=== PATIENT | male | born 1980 | race Caucasian/White ===

== ENCOUNTER 2021-01-17 17:29 | Emergency (ER) | payer OTHER ==
--- NOTE | 2021-01-17 18:14 | EDM.PDOC ---
ED HPI GENERAL MEDICAL PROBLEM - General Chief Complaint: Abdominal Pain Stated Complaint: ABD PAIN , HAS ABD HERNIA Time Seen by Provider: 01/17/21 18:14 Source of Information: Reports: Patient, RN Notes Reviewed History Limitations: Reports: No Limitations - History of Present Illness INITIAL COMMENTS - FREE TEXT/NARRATIVE: Rivera presents today for complaints of left shoulder pain and epigastric/abdominal pain for 1 to 2 days with intermittent nausea. He reports history of left shoulder pain at times due to repetitive movement at work. He reports history of ventral hernia. He denies chest pain, chest pressure, SOB, difficulty breathing, palpitations, fever, chills, vomiting, change in bowel/bladder or other concerns. - Related Data Allergies Allergy/AdvReac Type Severity Reaction Status Date / Time No Known Allergies Allergy Verified 01/17/21 18:05 Home Meds: Home Meds dilTIAZem HCL [Cardizem LA] 1 tab PO DAILY 01/17/21 [History] Past Medical History Musculoskeletal History: Reports: Back Pain, Chronic - Past Surgical History GI Surgical History: Reports: Hernia, Abdominal ED ROS GENERAL - Review of Systems Review Of Systems: See Below Constitutional: Reports: No Symptoms HEENT: Reports: No Symptoms Respiratory: Reports: No Symptoms Cardiovascular: Reports: No Symptoms Endocrine: Reports: No Symptoms GI/Abdominal: Reports: Abdominal Pain, Nausea. Denies: Anorexia, Black Stool, Bloody Stool, Constipation, Diarrhea, Decreased Appetite, Difficulty Swallowing, Distension, Flatus, Hematochezia, Melena, Vomiting : Reports: No Symptoms Musculoskeletal: Reports: Shoulder Pain (Bilateral shoulder pain, left worse then right. Pain increases with repetitive motion. ) Skin: Reports: No Symptoms Neurological: Reports: No Symptoms Psychiatric: Reports: No Symptoms Hematologic/Lymphatic: Reports: No Symptoms Immunologic: Reports: No Symptoms ED EXAM, GI/ABD - Physical Exam Exam: See Below Exam Limited By: No Limitations General Appearance: Alert, WD/WN, No Apparent Distress Eyes: Bilateral: Normal Appearance, EOMI Ears: Normal External Exam, Normal Canal, Hearing Grossly Normal, Normal TMs Throat/Mouth: Normal Inspection, Normal Lips, Normal Gums, Normal Oropharynx, Normal Voice, No Airway Compromise Head: Atraumatic, Normocephalic Neck: Normal Inspection, Supple, Non-Tender, Full Range of Motion. No: Lymphadenopathy (R), Lymphadenopathy (L) Respiratory/Chest: No Respiratory Distress, Lungs Clear, Normal Breath Sounds, No Accessory Muscle Use, Chest Non-Tender. No: Crackles, Rales, Rhonchi, Wheezing Cardiovascular: Normal Peripheral Pulses, Regular Rate, Rhythm, No Edema, No Gallop, No Murmur, No Rub GI/Abdominal Exam: Normal Bowel Sounds, Soft, No Organomegaly, No Distention, No Abnormal Bruit, No Mass, Hernia (small ventral hernia, reducable). No: Guarding, Rigid, Rebound, Tender, Mass Back Exam: Normal Inspection, Full Range of Motion. No: CVA Tenderness (R), CVA Tenderness (L), Muscle Spasm, Paraspinal Tenderness, Vertebral Tenderness Extremities: Normal Inspection, Normal Range of Motion, Non-Tender, No Pedal Edema, Normal Capillary Refill, Other (normal ROM bilateral arms/shoulders, no muscle atrophy.) Neurological: Alert, Oriented, Normal Cognition, Normal Gait, Normal Reflexes, No Motor/Sensory Deficits Psychiatric: Normal Affect, Normal Mood Skin Exam: Warm, Dry, Intact, Normal Color, No Rash. No: Cyanosis, Ecchymosis, Erythema, Increased Warmth, Pallor, Wound/Incision Lymphatic: No Adenopathy #1 Interpretation EKG Date: 01/17/21 Time: 19:00 Rhythm: NSR Rate (Beats/Min): 86 Hoffmeister: Normal P-Wave: Present QRS: Normal ST-T: Normal QT: Normal Comparison: NA - No Prior EKG Course - Vital Signs Last Recorded V/S: Last Vital Signs Temp 36.6 C 01/17/21 18: Pulse 75 01/17/21 19:08 Resp 16 01/17/21 18:21 BP 196/96 H 01/17/21 19:08 Pulse Ox 96 01/17/21 18:21 - Orders/Labs/Meds Orders: Active Orders 24 hr Category Date Time Status Abdomen 2V AP Flat Upright [CR] Stat Exams 01/17/21 18:47 Taken Chest 2V [CR] Stat Exams 01/17/21 18:47 Taken Saline Lock Insert [OM.PC] Routine Oth 01/17/21 18:50 Ordered EKG 12 Lead [EK] Routine Ther 01/17/21 18:47 Ordered Labs: Laboratory Tests 01/17/21 01/17/21 01/17/21 Range/Units 19:02 19:02 19:02 WBC 7.8 (4.5-11.0) K/uL RBC 5.33 (4.30-5.90) M/uL Hgb 16.2 H (12.0-15.0) g/dL Hct 46.0 (40.0-54.0) % MCV 86 (80-98) fL MCH 30 (27-31) pg MCHC 35 (32-36) % Plt Count 160 (150-400) K/uL Neut % (Auto) 63.1 (36-66) % Lymph % (Auto) 29.0 (24-44) % [place] % (Auto) 6.9 H (2-6) % Eos % (Auto) 0.6 L (2-4) % Baso % (Auto) 0.4 (0-1) % Sodium 142 (140-148) mmol/L Potassium 3.3 L (3.6-5.2) mmol/L Chloride 104 (100-108) mmol/L Carbon Dioxide 30 (21-32) mmol/L Anion Gap 11.3 (5.0-14.0) mmol/L BUN 13 (7-18) mg/dL Creatinine 1.1 (0.8-1.3) mg/dL Est Cr Clr Drug Dosing 100.88 mL/min Estimated GFR (MDRD) > 60 (>60) Glucose 94 (74-106) mg/dL Calcium 8.6 (8.5-10.1) mg/dL Total Bilirubin 0.8 (0.2-1.0) mg/dL AST 25 (15-37) U/L ALT 43 (12-78) U/L Alkaline Phosphatase 71 (46-116) U/L Troponin I (0.000-0.056) ng/mL Total Protein 7.4 (6.4-8.2) g/dL Albumin 3.9 (3.4-5.0) g/dL Globulin 3.5 (2.3-3.5) g/dL Albumin/Globulin Ratio 1.1 L (1.2-2.2) Amylase 35 (25-115) U/L Lipase 51 L (73-393) U/L 01/17/21 Range/Units 19:26 WBC (4.5-11.0) K/uL RBC (4.30-5.90) M/uL Hgb (12.0-15.0) g/dL Hct (40.0-54.0) % MCV (80-98) fL MCH (27-31) pg MCHC (32-36) % Plt Count (150-400) K/uL Neut % (Auto) (36-66) % Lymph % (Auto) (24-44) % [place] % (Auto) (2-6) % Eos % (Auto) (2-4) % Baso % (Auto) (0-1) % Sodium (140-148) mmol/L Potassium (3.6-5.2) mmol/L Chloride (100-108) mmol/L Carbon Dioxide (21-32) mmol/L Anion Gap (5.0-14.0) mmol/L BUN (7-18) mg/dL Creatinine (0.8-1.3) mg/dL Est Cr Clr Drug Dosing mL/min Estimated GFR (MDRD) (>60) Glucose (74-106) mg/dL Calcium (8.5-10.1) mg/dL Total Bilirubin (0.2-1.0) mg/dL AST (15-37) U/L ALT (12-78) U/L Alkaline Phosphatase (46-116) U/L Troponin I 0.018 (0.000-0.056) ng/mL Total Protein (6.4-8.2) g/dL Albumin (3.4-5.0) g/dL Globulin (2.3-3.5) g/dL Albumin/Globulin Ratio (1.2-2.2) Amylase (25-115) U/L Lipase (73-393) U/L Patient lab work reviewed, no acute findings. Patient not given IV fluids/medications per nursing, reviewed with patient. He would like to go home without IV fluids. He states he has no more pain. Patient will be discharged to home. Meds: Medications Discontinued Medications Generic Name Dose Route Start Last Admin Trade Name Freq PRN Reason Stop Dose Admin Famotidine 20 mg 01/17/21 20:00 01/17/21 20:52 Famotidine 20 Mg/2 Ml Sdv IVPUSH 01/17/21 20:01 Not Given ONETIME ONE Sodium Chloride 1,000 mls @ 500 mls/hr 01/17/21 18:50 01/17/21 20:52 Normal Saline IV 01/17/21 20:49 Not Given .BOLUS ONE Sodium Chloride 10 ml 01/17/21 18:50 Sodium Chloride 0.9% 10 Ml Syringe FLUSH ASDIRECTED PRN Keep Vein Open Recheck BP 153/88 - Radiology Interpretation Free Text/Narrative:: Chest xray reviewed, wet read, no acute findings noted. Radiologist read pending. Flat and upright abdominal x-rays reviewed and wet read, noted constipation without any other acute findings. Radiologist read pending. Departure - Departure Time of Disposition: 20:47 Disposition: Home, Self-Care 01 Condition: Good Clinical Impression: Abdominal pain, Constipation, White coat syndrome with diagnosis of hypertension - Discharge Information *PRESCRIPTION DRUG MONITORING PROGRAM REVIEWED*: Not Applicable *COPY OF PRESCRIPTION DRUG MONITORING REPORT IN PATIENT TAMI: Not Applicable Instructions: Constipation, Adult Referrals: PCP,None [Primary Care Provider] - Forms: ED Department Discharge Additional Instructions: You have been evaluated and treated for abdominal pain, constipation, white coat syndrome. Work on increased water intake to 100oz per day. Obtain one bottle of magnesium citrate tonight. Drink half of the bottle, wait 30 minutes and drink the rest. Eat a bland diet. Obtain famotidine (pepcid) 20mg tablets. Take one tablet by mouth daily. Obtain miralax poweder. Take this twice a day when you have not had a bowel movement for three days to help. Return for any worsening, issues or concerns. Sepsis Event Note (ED) - Focused Exam Vital Signs: Vital Signs Temp Pulse Resp BP Pulse Ox 01/17/21 19:08 75 196/96 H 01/17/21 18:21 36.6 C 89 16 194/96 H 96 01/17/21 17:58 36.6 C 89 16 194/105 H 96 - My Orders Last 24 Hours: My Active Orders 01/17/21 18:47 Abdomen 2V AP Flat Upright [CR] Stat Chest 2V [CR] Stat EKG 12 Lead [EK] Routine 01/17/21 18:50 Saline Lock Insert [OM.PC] Routine - Assessment/Plan Last 24 Hours: My Active Orders 01/17/21 18:47 Abdomen 2V AP Flat Upright [CR] Stat Chest 2V [CR] Stat EKG 12 Lead [EK] Routine 07/10/21 18:50 Saline Lock Insert [OM.PC] Routine Assessment:: Abdominal pain, Constipation, White coat syndrome with diagnosis of hypertension Plan: Patient evaluated and treated for abdominal pain, constipation, white coat syndrome. Work on increased water intake to 100oz per day. Obtain one bottle of magnesium citrate tonight. Drink half of the bottle, wait 30 minutes and drink the rest. Eat a bland diet. Obtain famotidine (pepcid) 20mg tablets. Take one tablet by mouth daily. Obtain miralax poweder. Take this twice a day when you have not had a bowel movement for three days to help. Return for any worsening, issues or concerns. Advised to follow up with primary provider, patient verbalizes understanding.
[2021-01-17] MEDS ORDERED: Sodium Chloride 0.9% 10 ML Syringe FLUSH PRN (18:50)
[2021-01-17] MEDS ORDERED: Sodium Chloride 0.9% 1,000 ML IV ONE (18:50)
[2021-01-17] MEDS ORDERED: Famotidine 20 MG/2 ML SDV IVPUSH ONE (20:00)
--- NOTE | 2021-01-19 09:43 | CR ---
CHEST: 2 view CLINICAL HISTORY:Epigastric pain COMPARISON:None FINDINGS: The heart size, pulmonary vascularity and hilar structures are normal. No infiltrate effusion or pneumothorax is seen. IMPRESSION: No acute cardiopulmonary process.
--- NOTE | 2021-01-19 09:44 | CR ---
Abdomen 2V AP Flat Upright CLINICAL HISTORY: Abdominal pain FINDINGS: Small intestinal configuration is nonacute. No free air is seen. There is gas and feces are the colon. There is some fecal retention on the right. IMPRESSION: Nonacute intestinal gas pattern Fecal retention in the right and transverse colon
== END 2021-01-17 21:18 | disposition home or self-care (01) ==
LOC: JP.ED 17:29
DX: K59.00 Constipation, unspecified (principal); I10 Essential (primary) hypertension; M25.512 Pain in left shoulder
CPT/HCPCS: 36415; 71046; 71046-26; 74019; 74019-26; 80053; 82150; 83690; 84484; 85025; 93005; 99284-25